=== PATIENT | male | born 1970 | race African-American/Black ===

== ENCOUNTER 2018-03-16 22:08 | Emergency (ER) | payer OTHER ==
[~2018-03-16] VITALS: Ht 190.5 cm; Wt 140.2 kg
[2018-03-16 22:30] VITALS: Ht 190.5 cm; Wt 140.2 kg
[2018-03-17 00:03] VITALS: BP 120/78
== END 2018-03-17 00:03 | disposition home or self-care (01) ==
LOC: ED 22:08
DX: S43.401A Unspecified sprain of right shoulder joint, initial encounter (principal); S93.401A Sprain of unspecified ligament of right ankle, initial encounter; S93.601A Unspecified sprain of right foot, initial encounter; S76.011A Strain of muscle, fascia and tendon of right hip, initial encounter; V43.92XA Unspecified car occupant injured in collision with other type car in traffic accident, initial encounter; Y93.I9 Activity, other involving external motion; Y92.488 Other paved roadways as the place of occurrence of the external cause; Y99.8 Other external cause status
CPT/HCPCS: J2270; Q0162